=== PATIENT | female | born 1955 | race Caucasian/White ===

== ENCOUNTER 2019-04-15 05:28 | Day surgery (SDC) | payer MEDICAID ==
[2019-04-08 10:08] LABS: BASOPHILS # (AUTO) 0.1 X10'3 (0-0.2); BASOPHILS % (AUTO) 0.5 % (0-1); EOSINOPHILS # (AUTO) 0.1 X10'3 (0-0.9); EOSINOPHILS % (AUTO) 0.9 % (0-6); LYMPHOCYTES # (AUTO) 1.1 X10'3 (1.1-4.8); LYMPHOCYTES % (AUTO) 9.9 % (21-51); MEAN CORPUSCULAR HEMOGLOBIN 27.7 PG (27.0-31.0); MEAN CORPUSCULAR HGB CONC 32.9 g/dL (33.0-36.5); MEAN CORPUSCULAR VOLUME 84.2 FL (78-98); MEAN PLATELET VOLUME 7.5 FL (7.4-10.4); MONOCYTES # (AUTO) 0.5 X10'3 (0-0.9); MONOCYTES % (AUTO) 4.8 % (2-12); NEUTROPHILS # (AUTO) 9.5 X10'3 (1.8-7.7); NEUTROPHILS % (AUTO) 83.9 % (42-75); PRE OP HEMATOCRIT 38.5 % (35.0-45.0); PRE OP HEMOGLOBIN 12.7 g/dL (12.0-16.0); PRE OP PLATELET COUNT 335 X10'3 (140-440); RED BLOOD COUNT 4.58 X10'6 (4.20-5.60); RED CELL DISTRIBUTION WIDTH 15.8 % (11.5-14.5)
[2019-04-08 10:33] LABS: ALBUMIN 3.8 G/DL (3.4-5.0); ALBUMIN/GLOBULIN RATIO 0.8 (1.1-1.5); ALKALINE PHOSPHATASE 105 IU/L (46-116); BLOOD UREA NITROGEN 18 MG/DL (7-18); BUN/CREATININE RATIO 24.3 (6.6-38.0); CHLORIDE 106 MMOL/L (99-107); CREATININE 0.74 MG/DL (0.40-0.90); PRE OP ALT 15 U/L (30-65); PRE OP ANION GAP 8 (8-16); PRE OP AST 19 U/L (10-37); PRE OP BILIRUB, TOTAL 0.5 MG/DL (0.0-1.0); PRE OP GLUCOSE 108 MG/DL (70-104); PRE OP POTASSIUM 3.8 MMOL/L (3.4-5.1); PRE OP SODIUM 143 MMOL/L (135-145); TOTAL CARBON DIOXIDE 28.8 MMOL/L (24-32); TOTAL PROTEIN 8.3 G/DL (6.4-8.2); eGFR 79 ML/MIN
[2019-04-15] VITALS (10 sets, daily range): BP systolic 118–147; BP diastolic 68–94
[~2019-04-15] VITALS: Ht 154.9 cm; Wt 102.3 kg
[~2019-04-15 05:28] MED LIST: LISI40TA4 PO; MULT-1085 PO; ringers solution, lacted 1,000 ML IV SCH
[2019-04-15] MEDS ORDERED: cefazolin/dext.iso 2gm/50ml 50 ML IV ONE (05:30)
[2019-04-15] MEDS ORDERED: famotidine 20mg tablet PO ONE (05:30)
[2019-04-15] MEDS ORDERED: LIDOcaine 1% (10mg/ml) 2ml vial ONE (05:57)
[2019-04-15] MEDS ORDERED: BUPIVAcaine/PF 2.5mg/ml (0.25%) 10ml vial ONE ×2 (06:47→07:20)
[2019-04-15] MEDS ORDERED: LIDOcaine 1% 30ml preserv. free vial ONE ×2 (06:47→13:57)
[2019-04-15] MEDS ORDERED: BUPIVAcaine/PF 2.5 mg/ml (0.25%) 30ml vial ONE ×2 (06:48→13:57)
[2019-04-15] MEDS ORDERED: BUPIVACAINE liposomal/PF 13.3 MG/ML vial IM ONE ×2 (06:48→07:20)
[2019-04-15] MEDS ORDERED: fentaNYL/PF 50MCG/1 ML 2ML syringe ONE (07:35)
[2019-04-15] MEDS ORDERED: midazolam 2 mg/2 ml injection ONE (08:09)
[2019-04-15] MEDS ORDERED: ePHEDrine 50MG/ML INJ. ONE (08:09)
[2019-04-15] MEDS ORDERED: LIDOcaine 2% (20mg/ml) 5ml vial ONE (08:10)
[2019-04-15] MEDS ORDERED: rocuronium 10mg/ml inj IV ONE (08:11)
[2019-04-15] MEDS ORDERED: 0.9 % SODIUM CHLORIDE 10 ML VIAL ONE (08:11)
[2019-04-15] MEDS ORDERED: propofol inj 20 ML IV ONE (08:11)
[2019-04-15] MEDS ORDERED: ondansetron/PF 4mg/2ml inj ONE (08:18)
[2019-04-15] MEDS ORDERED: dexamethasone sod phosphate 4mg/ml inj. ONE (08:18)
[2019-04-15] MEDS ORDERED: ringers solution, lacted 1,000 ML IV SCH (08:53)
[2019-04-15] MEDS ORDERED: meperidine/PF 25mg/ml syringe IV PRN ×3 (08:55)
[2019-04-15] MEDS ORDERED: ondansetron/PF 4mg/2ml inj IV PRN (08:55)
[2019-04-15] MEDS ORDERED: morphine 4 MG/ML inj SYRINge IV PRN (08:55)
[2019-04-15] MEDS ORDERED: acetaminophen 1,000mg/100ml IV 100 ML IV PRN (08:55)
[2019-04-15] MEDS ORDERED: morphine 2 MG/ML inj. syringe IV PRN (08:55)
[2019-04-15] MEDS ORDERED: proCHLORperazine 10 MG/2 ml inj IV PRN (08:55)
[2019-04-15] MEDS ORDERED: glycopyrrolate 0.2mg/ml inj ONE (09:24)
[2019-04-15] MEDS ORDERED: neostigmine methylsulfate 1 MG/ML 10ml vial ONE (09:24)
[2019-04-15] MEDS ORDERED: ketorolac trometh. 30mg/ml inj. ONE (09:28)
--- NOTE | 2019-04-15 09:44 | NUR ---
Received from OR via , accompanied by Anesthesiologist DR MILAN and report given by Anesthesiolgist. AWAKENS TO VOICE. VITALS STABLE. DRESSINGS DI. BRI PAIN. ABD SOFT.
[2019-04-15] MEDS ORDERED: oxyCODONE/APAP 10/325mg tablet PO PRN (09:50)
[2019-04-15] MEDS ORDERED: oxyCODONE/APAP 5-325mg tablet PO PRN (09:50)
--- NOTE | 2019-04-15 11:14 | NUR ---
AWAKE AND ORIENTED. VITALS STABLE. DRESSINGS DI. STATES PAIN IMPROVING. HOME WITH HER DAUGHTER AT THIS TIME.
== END 2019-04-15 11:14 | disposition home or self-care (01) ==
LOC: PAS 05:28
PROVIDERS: ATTEND Surgery
DX: K43.0 Incisional hernia with obstruction, without gangrene (principal); I10 Essential (primary) hypertension; E66.9 Obesity, unspecified; Z68.42 Body mass index [BMI] 45.0-49.9, adult; Z91.013 Allergy to seafood; Z79.899 Other long term (current) drug therapy; Z72.89 Other problems related to lifestyle
CPT/HCPCS: 36415; 49655; 80053; 82948; 85025; C1781; C9290; J0131; J1100; J1885; J2001; J2175; J2250; J2405; J2704; J2710; J3010; J3490; S2900; A4215; A4618; J7120

== ENCOUNTER 2023-06-19 06:34 | Day surgery (SDC) | payer MEDICARE, MEDICAID ==
[2023-06-13 14:02] LABS: BASOPHILS % (AUTO) 0.5 % (0-1); EOSINOPHILS # (AUTO) 0.1 X10'3 (0-0.9); EOSINOPHILS % (AUTO) 1.8 % (0-6); LYMPHOCYTES # (AUTO) 2.8 X10'3 (1.1-4.8); LYMPHOCYTES % (AUTO) 34.1 % (21-51); MEAN CORPUSCULAR HEMOGLOBIN 29.7 PG (27.0-31.0); MEAN CORPUSCULAR HGB CONC 32.8 g/dL (33.0-36.5); MEAN CORPUSCULAR VOLUME 90.4 FL (78-98); MEAN PLATELET VOLUME 7.9 FL (7.4-10.4); MONOCYTES # (AUTO) 0.6 X10'3 (0-0.9); NEUTROPHILS # (AUTO) 4.7 X10'3 (1.8-7.7); NEUTROPHILS % (AUTO) 56.6 % (42-75); PRE OP HEMATOCRIT 39.8 % (35.0-45.0); PRE OP PLATELET COUNT 317 X10'3 (140-440); PRE OP WHITE BLOOD COUNT 8.2 10'3 (4.8-10.8); RED CELL DISTRIBUTION WIDTH 15.5 % (11.5-14.5)
[2023-06-13 14:14] LABS: ALBUMIN 3.7 G/DL (3.4-5.0); ALBUMIN/GLOBULIN RATIO 0.9 (1.1-1.5); ALKALINE PHOSPHATASE 101 IU/L (46-116); BLOOD UREA NITROGEN 8 MG/DL (7-18); BUN/CREATININE RATIO 11.1 (10.0-20.0); CALCIUM 9.1 MG/DL (8.5-10.1); CHLORIDE 105 MMOL/L (99-107); CREATININE 0.72 MG/DL (0.40-0.90); PRE OP ALT 18 U/L (30-65); PRE OP ANION GAP 8 (8-16); PRE OP AST 20 U/L (10-37); PRE OP BILIRUB, TOTAL 0.4 MG/DL (0.0-1.0); PRE OP GLUCOSE 95 MG/DL (70-104); PRE OP POTASSIUM 3.7 MMOL/L (3.4-5.1); PRE OP SODIUM 141 MMOL/L (135-145); TOTAL CARBON DIOXIDE 28.1 MMOL/L (24-32); eGFR 81 ML/MIN
[2023-06-19] VITALS (8 sets, daily range): BP systolic 114–163; BP diastolic 67–88; PULSE 62–78; RESP 14–20; TEMP 97.8; O2SAT 96–100
[~2023-06-19] VITALS: Ht 154.9 cm; Wt 91.6 kg
[2023-06-19] MEDS: cefazolin 2gm/D5W 100mL 100 ML IV ONE (05:30)
[~2023-06-19 06:34] MED LIST changes: +LISI10TA27 PO; -LISI40TA4 PO; -MULT-1085 PO; -ringers solution, lacted 1,000 ML IV SCH
[2023-06-19] MEDS: famotidine 20mg tablet PO ONE (07:02)
[2023-06-19] MEDS: ringers solution, lacted 1,000 ML IV SCH (07:04)
[2023-06-19] MEDS ORDERED: BUPIVACAINE liposomal/PF 13.3 MG/ML vial IM ONE (08:06)
[2023-06-19] MEDS ORDERED: LIDOcaine 1% 30ml preserv. free vial ONE (08:06)
[2023-06-19] MEDS ORDERED: BUPIVAcaine/PF 2.5mg/ml (0.25%) 10ml vial ONE (08:06)
[2023-06-19] MEDS ORDERED: fentaNYL /PF 50mcg/ml 5ml ampule ONE (08:32)
[2023-06-19] MEDS ORDERED: midazolam 1 mg/ML 2ml injection ONE (08:32)
[2023-06-19] MEDS ORDERED: LIDOcaine 1%/PF 5ML 10 MG/ML VIAL ONE (08:36)
[2023-06-19] MEDS ORDERED: propofol inj 20 ML IV ONE (08:36)
[2023-06-19] MEDS ORDERED: sevoflurane 250ml liquid IH ONE (08:49)
[2023-06-19] MEDS: BUPIVAcaine/PF 2.5mg/ml (0.25%) 10ml vial IJ ONE (09:15)
[2023-06-19] MEDS ORDERED: rocuronium 10mg/ml inj IV ONE (10:16)
[2023-06-19] MEDS ORDERED: oxyCODONE/APAP 5-325mg tablet PO PRN (10:40)
== END 2023-06-19 11:40 | disposition home or self-care (01) ==
LOC: PAS 06:34
PROVIDERS: ATTEND Surgery
DX: K43.6 Other and unspecified ventral hernia with obstruction, without gangrene (principal); I10 Essential (primary) hypertension; Z79.899 Other long term (current) drug therapy; Z88.8 Allergy status to other drugs, medicaments and biological substances; Z98.890 Other specified postprocedural states
CPT/HCPCS: 36415; 49594; 80053; 82948; 85025; 93005; C1781; C9290; J0131; J0690; J1100; J2250; J2405; J2704; J2710; J3010; J3490; J7030; J7120; Z7506; Z7508; Z7512; A4215; A4618